=== PATIENT | male | born 1990 | race Caucasian/White ===

== ENCOUNTER 2017-02-23 22:39 | Inpatient (IN) | payer MEDICAID, OTHER ==
[~2017-02-23] VITALS: Ht 177.8 cm; Wt 57.4 kg
[~2017-02-23 22:39] MED LIST: CITA20TA9 PO
[2017-02-23] MEDS ORDERED: ALPR1TAB7 PO (22:58)
[2017-02-23 23:14] LABS: BASOPHILS # (AUTO) 0.06 K/uL (0.00-0.20); BASOPHILS % (AUTO) 0.6 % (0.0-2.0); EOSINOPHILS # (AUTO) 0.14 K/uL (0.00-0.70); EOSINOPHILS % (AUTO) 1.42 % (1.0-6.0); HEMATOCRIT 44.7 % (41-53); HEMOGLOBIN 15.3 g/dL (13.5-17.5); LYMPHOCYTES # (AUTO) 2.7 K/uL (1.0-4.8); LYMPHOCYTES % (AUTO) 26.3 % (22.0-44.0); MEAN CORPUSCULAR HGB CONC 34.2 G/dL (31.0-37.0); MEAN CORPUSCULAR VOLUME 88 fL (80-100); MONOCYTES # (AUTO) 0.5 K/uL (0.1-1.0); MONOCYTES % (AUTO) 5.3 % (2.0-9.0); NEUTROPHILS # (AUTO) 6.7 K/uL (1.8-7.7); NEUTROPHILS % (AUTO) 66.4 % (40.0-70.0); PLATELET COUNT (AUTO) 256 K/uL (150-450); RED BLOOD CELL COUNT(AUTO) 5.09 MIL/uL (4.50-5.90); RED CELL DISTRIBUTION WIDTH 13.5 % (11.5-14.5); WHITE BLOOD COUNT (AUTO) 10.1 K/uL (4.5-11.0)
[2017-02-23 23:28] LABS: ANION GAP 12 mmol/L (8-16); CALCIUM, TOTAL 8.4 mg/dL (8.8-10.5); CARBON DIOXIDE 23 mmol/L (22-29); CHLORIDE 107 mmol/L (98-107); CREATININE 0.95 mg/dL (0.60-1.30); GLOMERULAR FILTR. RATE CALC > 60 mL/min (>60); POTASSIUM 3.7 mmol/L (3.5-5.1); SODIUM SERUM 142 mmol/L (136-145); UREA NITROGEN, BLOOD 11 mg/dL (7-18)
[2017-02-23 23:34] LABS: ALANINE AMINOTRANSFERASE 18 U/L (12-78); ALBUMIN 4.4 g/dL (3.4-5.0); ASPARTATE AMINOTRANSFERASE 16 U/L (15-37); BILIRUBIN,TOTAL 0.3 mg/dL (0.1-1.0); TOTAL PROTEIN, SERUM 7.7 g/dL (6.4-8.2)
[2017-02-24] MEDS ORDERED: HALOPERIDOL 5 MG TABLET PO PRN (01:00)
[2017-02-24] MEDS ORDERED: HALOPERIDOL 5 MG TABLET PO ONE (01:00)
[2017-02-24] MEDS ORDERED: ZOLPIDEM TARTRATE 10 MG TABLET PO PRN (01:00)
[2017-02-24] MEDS ORDERED: DiphenhydrAMINE HCL 25 MG CAPSULE PO ONE (01:00)
[2017-02-24] MEDS: LORazepam 2 MG TABLET PO PRN ×2 (04:45→12:22)
[2017-02-24 04:46] VITALS: BP 114/74
[2017-02-24] MEDS ORDERED: INFLUENZA VIRUS VACCINE QVS 2017-18 (3YR+)/PF 60 MCG/0.5 ML SYRINGE IM ONE (05:30)
[2017-02-24 16:04] VITALS: BP 108/66
[2017-02-24] MEDS ORDERED: ACETAMINOPHEN 325 MG TABLET PO PRN (17:45)
[2017-02-24] MEDS: IBUPROFEN 600 MG TABLET PO PRN (18:07)
[2017-02-24] MEDS: MIRTAZAPINE 15 MG TABLET PO SCH (20:26)
[2017-02-24] MEDS ORDERED: MIRTAZAPINE 15 MG TABLET PO SCH (21:00)
[2017-02-25 01:38] VITALS: BP 110/71
[2017-02-25] MEDS: LORazepam 2 MG TABLET PO PRN ×3 (05:56→17:46)
[2017-02-25 08:26] LABS: CHOL/HDL RATIO 2.9 (4.2-7.3); THYROID STIMULATING HORMONE 1.53 uIU/mL (0.36-3.74)
[2017-02-25] MEDS: IBUPROFEN 600 MG TABLET PO PRN (08:47)
[2017-02-25 09:01] VITALS: BP 117/77
[2017-02-25 16:03] VITALS: BP 110/76
[2017-02-25] MEDS: MIRTAZAPINE 15 MG TABLET PO SCH (20:57)
[2017-02-26 05:07] VITALS: BP 105/62
[2017-02-26] MEDS: LORazepam 2 MG TABLET PO PRN (08:21)
[2017-02-26 08:46] VITALS: BP 124/89
[2017-02-26] MEDS ORDERED: MIRT15 PO (11:17)
== END 2017-02-26 13:30 | disposition home or self-care (01) | DRG 750 ==
LOC: EMS 22:40 → B2S 02-24 01:26
PROVIDERS: ADMIT Psychiatry & Neurology Psychiatry; ATTEND Psychiatry & Neurology Psychiatry
DX: F25.9 Schizoaffective disorder, unspecified (principal); F33.2 Major depressive disorder, recurrent severe without psychotic features; R45.851 Suicidal ideations; F41.9 Anxiety disorder, unspecified; F12.90 Cannabis use, unspecified, uncomplicated; F13.90 Sedative, hypnotic, or anxiolytic use, unspecified, uncomplicated; R45.84 Anhedonia; S51.812A Laceration without foreign body of left forearm, initial encounter; X58.XXXA Exposure to other specified factors, initial encounter; Y93.89 Activity, other specified; Y92.89 Other specified places as the place of occurrence of the external cause; Y99.8 Other external cause status; Z91.5 Personal history of self-harm; Z88.0 Allergy status to penicillin; Z79.899 Other long term (current) drug therapy; Z72.89 Other problems related to lifestyle
CPT/HCPCS: 84439; 84443; 90471; 99285; G0480

== ENCOUNTER 2018-02-04 11:17 | Inpatient (IN) | payer MEDICAID ==
[~2018-02-04] VITALS: Ht 177.8 cm; Wt 61.7 kg
[~2018-02-04 11:17] MED LIST changes: -CITA20TA9 PO; +MIRT15 PO
[2018-02-04 11:53] LABS: AMPHET/METH SCREEN,URINE NEGATIVE (NEGATIVE); BARBITURATE SCREEN, URINE NEGATIVE (NEGATIVE); BENZODIAZEPINES SCREEN,URINE POSITIVE (NEGATIVE); CANNABINOID SCREEN,URINE POSITIVE (NEGATIVE); COCAINE SCREEN,URINE NEGATIVE (NEGATIVE); METHADONE SCREEN, URINE NEGATIVE (NEGATIVE); OPIATE SCREEN,URINE NEGATIVE (NEGATIVE); PHENCYCLIDINE SCREEN,URINE NEGATIVE (NEGATIVE)
[2018-02-04 11:54] LABS: BASOPHILS % (AUTO) 0.9 % (0.0-2.0); HEMATOCRIT 43.1 % (41-53); HEMOGLOBIN 14.7 g/dL (13.5-17.5); LYMPHOCYTES # (AUTO) 2.5 K/uL (1.0-4.8); LYMPHOCYTES % (AUTO) 39.3 % (22.0-44.0); MEAN CORPUSCULAR HEMOGLOBIN 30.8 pg (26.0-34.0); MEAN CORPUSCULAR HGB CONC 34.1 G/dL (31.0-37.0); MEAN CORPUSCULAR VOLUME 90 fL (80-100); MONOCYTES # (AUTO) 0.4 K/uL (0.1-1.0); MONOCYTES % (AUTO) 6.6 % (2.0-9.0); NEUTROPHILS # (AUTO) 3.2 K/uL (1.8-7.7); NEUTROPHILS % (AUTO) 50.2 % (40.0-70.0); PLATELET COUNT (AUTO) 250 K/uL (150-450); RED BLOOD CELL COUNT(AUTO) 4.76 MIL/uL (4.50-5.90); RED CELL DISTRIBUTION WIDTH 13.3 % (11.5-14.5)
[2018-02-04 12:05] LABS: ANION GAP 9 mmol/L (8-16); CALCIUM, TOTAL 7.7 mg/dL (8.8-10.5); CARBON DIOXIDE 26 mmol/L (22-29); CHLORIDE 110 mmol/L (98-107); CREATININE 0.86 mg/dL (0.60-1.30); GLOMERULAR FILTR. RATE CALC > 60 mL/min (>60); GLUCOSE,RANDOM 91 mg/dL (70-110); POTASSIUM 3.8 mmol/L (3.5-5.1); SODIUM SERUM 145 mmol/L (136-145); UREA NITROGEN, BLOOD 8 mg/dL (7-18)
[2018-02-04 12:12] LABS: ALANINE AMINOTRANSFERASE 22 U/L (12-78); ALBUMIN 3.8 g/dL (3.4-5.0); ALKALINE PHOSPHATASE 75 U/L (46-116); ASPARTATE AMINOTRANSFERASE 22 U/L (15-37); BILIRUBIN,TOTAL 0.2 mg/dL (0.1-1.0); TOTAL PROTEIN, SERUM 7.3 g/dL (6.4-8.2)
[2018-02-04] MEDS: HALOPERIDOL 5 MG TABLET PO PRN (13:33)
[2018-02-04] MEDS: LORazepam 2 MG TABLET PO PRN (13:33)
[2018-02-05] VITALS (10 sets, daily range): BP systolic 101–121; BP diastolic 63–76
[2018-02-05] MEDS: ZOLPIDEM TARTRATE 10 MG TABLET PO PRN (00:23)
[2018-02-05] MEDS: LORazepam 2 MG TABLET PO PRN (00:32)
[2018-02-05] MEDS ORDERED: MAG HYDROX/AL HYDROX/SIMETH ES 30 ML SUSPENSION UDCUP PO PRN (02:15)
[2018-02-05] MEDS ORDERED: PETROLATUM,WHITE 71 GM JELLY TP PRN (02:15)
[2018-02-05] MEDS ORDERED: NICOTINE 14 MG/24 HOUR PATCH TD PRN (02:15)
[2018-02-05] MEDS ORDERED: GuaiFENesin/D-METHORPHAN [SUGAR-FREE] 200-20MG/10 ML SYRUP UDCUP PO PRN (02:15)
[2018-02-05] MEDS ORDERED: MAGNESIUM HYDROXIDE SUSPENSION 30 ML UDCUP PO PRN (02:15)
[2018-02-05] MEDS ORDERED: CloNIDine HCL 0.1 MG TABLET PO PRN (02:15)
[2018-02-05] MEDS ORDERED: DOCUSATE SODIUM 100 MG CAPSULE PO PRN (02:15)
[2018-02-05] MEDS ORDERED: IBUPROFEN 400 MG TABLET PO PRN (02:15)
[2018-02-05] MEDS ORDERED: LOPERAMIDE HCL 2 MG CAPSULE PO PRN (02:15)
[2018-02-05] MEDS ORDERED: ALBUTEROL SULFATE HFA 90 MCG/PUFF 8 GM INHALER IH PRN (02:15)
[2018-02-05] MEDS ORDERED: ONDANSETRON HCL 4 MG TABLET PO PRN (02:15)
[2018-02-05] MEDS ORDERED: ACETAMINOPHEN 325 MG TABLET PO PRN (02:15)
[2018-02-05] MEDS ORDERED: CYANOCOBALAMIN 1,000 MCG/ML VIAL IM ONE (11:15)
[2018-02-05] MEDS ORDERED: LORazepam 2 MG TABLET PO PRN (11:15)
[2018-02-05] MEDS: MULTIVITAMINS WITH MINERALS, THERAPEUTIC TABLET PO SCH (12:13)
[2018-02-05] MEDS: FOLIC ACID 1 MG TABLET PO SCH (12:13)
[2018-02-05] MEDS: LORazepam 2 MG TABLET PO SCH (14:42)
[2018-02-05] MEDS: THIAMINE HCL 100 MG TABLET PO SCH (16:09)
[2018-02-05] MEDS: HALOPERIDOL 5 MG TABLET PO PRN (16:18)
[2018-02-05] MEDS: MIRTAZAPINE 15 MG TABLET PO SCH (20:25)
[2018-02-06 06:10] VITALS: BP 113/71
[2018-02-06] MEDS ORDERED: LORazepam 2 MG TABLET PO PRN (07:00)
[2018-02-06 07:53] LABS: HEMOGLOBIN A1C 4.8 % (4.5-6.2)
[2018-02-06 08:00] VITALS: BP 121/79
[2018-02-06 08:06] VITALS: BP 121/79
[2018-02-06 08:08] LABS: ALANINE AMINOTRANSFERASE 25 U/L (12-78); ALBUMIN 3.8 g/dL (3.4-5.0); ALKALINE PHOSPHATASE 75 U/L (46-116); ANION GAP 8 mmol/L (8-16); ASPARTATE AMINOTRANSFERASE 29 U/L (15-37); BILIRUBIN,TOTAL 0.7 mg/dL (0.1-1.0); CALCIUM, TOTAL 8.9 mg/dL (8.8-10.5); CARBON DIOXIDE 30 mmol/L (22-29); CHLORIDE 102 mmol/L (98-107); CHOL/HDL RATIO 3.2 (4.2-7.3); CHOLESTEROL 189 mg/dL (131-200); CREATININE 0.93 mg/dL (0.60-1.30); GLOMERULAR FILTR. RATE CALC > 60 mL/min (>60); GLUCOSE,RANDOM 67 mg/dL (70-110); HDL CHOLESTEROL 60 mg/dL (40-60); LDL CHOL (CALC.) 100 mg/dL (0-130); POTASSIUM 4.4 mmol/L (3.5-5.1); SODIUM SERUM 140 mmol/L (136-145); THYROID STIMULATING HORMONE 1.63 uIU/mL (0.36-3.74); TOTAL PROTEIN, SERUM 7.4 g/dL (6.4-8.2); TRIGLYCERIDES 145 mg/dL (15-150); UREA NITROGEN, BLOOD 9 mg/dL (7-18)
[2018-02-06] MEDS: LORazepam 2 MG TABLET PO SCH ×4 (08:31→20:35)
[2018-02-06] MEDS: FOLIC ACID 1 MG TABLET PO SCH (08:31)
[2018-02-06] MEDS: THIAMINE HCL 100 MG TABLET PO SCH ×2 (08:31→16:04)
[2018-02-06] MEDS: MULTIVITAMINS WITH MINERALS, THERAPEUTIC TABLET PO SCH (08:31)
[2018-02-06] MEDS: HALOPERIDOL 5 MG TABLET PO PRN (11:15)
[2018-02-06 16:05] VITALS: BP 115/75
[2018-02-06 16:06] VITALS: BP 115/75
[2018-02-06] MEDS: MIRTAZAPINE 15 MG TABLET PO SCH (20:35)
[2018-02-06] MEDS: ZOLPIDEM TARTRATE 10 MG TABLET PO PRN (23:40)
[2018-02-07 01:06] VITALS: BP 107/63
[2018-02-07 08:10] VITALS: BP 122/79
[2018-02-07] MEDS: LORazepam 2 MG TABLET PO SCH ×2 (08:30→13:42)
[2018-02-07] MEDS: FOLIC ACID 1 MG TABLET PO SCH (08:30)
[2018-02-07] MEDS: MULTIVITAMINS WITH MINERALS, THERAPEUTIC TABLET PO SCH (08:30)
[2018-02-07] MEDS: THIAMINE HCL 100 MG TABLET PO SCH (08:30)
[2018-02-07] MEDS ORDERED: FOLI1 PO (08:52)
[2018-02-07] MEDS ORDERED: THIA100T67 PO (08:52)
[2018-02-07] MEDS ORDERED: MIRT15 PO (14:34)
[2018-02-08] MEDS ORDERED: LORazepam 1 MG TABLET PO PRN (07:00)
[2018-02-08] MEDS ORDERED: LORazepam 1 MG TABLET PO SCH (09:00)
[2018-02-09] MEDS ORDERED: LORazepam 1 MG TABLET PO PRN (07:00)
== END 2018-02-07 15:22 | disposition home or self-care (01) | DRG 751 ==
LOC: EMS 11:17 → B2S 21:08
DX: F33.3 Major depressive disorder, recurrent, severe with psychotic symptoms (principal); R45.851 Suicidal ideations; F10.20 Alcohol dependence, uncomplicated; F12.10 Cannabis abuse, uncomplicated; F19.10 Other psychoactive substance abuse, uncomplicated; G47.00 Insomnia, unspecified; F41.9 Anxiety disorder, unspecified; Z91.5 Personal history of self-harm; Z88.0 Allergy status to penicillin; Z88.2 Allergy status to sulfonamides; Z88.8 Allergy status to other drugs, medicaments and biological substances; Z28.21 Immunization not carried out because of patient refusal; Z71.41 Alcohol abuse counseling and surveillance of alcoholic; Z71.51 Drug abuse counseling and surveillance of drug abuser
CPT/HCPCS: 83036; 84439; 84443; 99285; G0480; J3420

== ENCOUNTER 2018-10-29 19:32 | Emergency (ER) | payer SELFPAY ==
[~2018-10-29] VITALS: Ht 177.8 cm; Wt 61.4 kg
[2018-10-29] MEDS ORDERED: PARO20TA24 PO (19:45)
[2018-10-29 21:48] VITALS: BP 122/77
== END 2018-10-29 21:57 | disposition home or self-care (01) ==
LOC: EMS 19:34
DX: S40.862A Insect bite (nonvenomous) of left upper arm, initial encounter (principal); S30.861A Insect bite (nonvenomous) of abdominal wall, initial encounter; L50.9 Urticaria, unspecified; F41.9 Anxiety disorder, unspecified; F32.9 Major depressive disorder, single episode, unspecified; F17.210 Nicotine dependence, cigarettes, uncomplicated; Z88.0 Allergy status to penicillin; Z88.8 Allergy status to other drugs, medicaments and biological substances; W57.XXXA Bitten or stung by nonvenomous insect and other nonvenomous arthropods, initial encounter; Y93.89 Activity, other specified; Y92.89 Other specified places as the place of occurrence of the external cause; Y99.8 Other external cause status

== ENCOUNTER 2019-12-26 10:20 | Emergency (ER) | payer OTHER ==
[~2019-12-26] VITALS: Ht 177.8 cm; Wt 70.5 kg
[~2019-12-26 10:20] MED LIST changes: -MIRT15 PO; +PARO20TA24 PO
[2019-12-26] MEDS ORDERED: ONDANSETRON HCL 4 MG/2 ML VIAL IVP ONE (11:00)
[2019-12-26 12:17] LABS: BASOPHILS % (AUTO) 0.6 % (0.0-2.0); EOSINOPHILS % (AUTO) 0.6 % (1.0-6.0); HEMOGLOBIN 14.7 g/dL (13.5-17.5); LYMPHOCYTES # (AUTO) 0.7 K/uL (1.0-4.8); LYMPHOCYTES % (AUTO) 5.6 % (22.0-44.0); MEAN CORPUSCULAR HEMOGLOBIN 29.5 pg (26.0-34.0); MEAN CORPUSCULAR HGB CONC 33.4 G/dL (31.0-37.0); MEAN CORPUSCULAR VOLUME 88 fL (80-100); MONOCYTES # (AUTO) 0.8 K/uL (0.1-1.0); MONOCYTES % (AUTO) 6.7 % (2.0-9.0); NEUTROPHILS # (AUTO) 10.9 K/uL (1.8-7.7); PLATELET COUNT (AUTO) 297 K/uL (150-450); RED BLOOD CELL COUNT(AUTO) 4.99 MIL/uL (4.50-5.90); RED CELL DISTRIBUTION WIDTH 14.2 % (11.5-14.5)
[2019-12-26 12:23] LABS: ANION GAP 9 mmol/L (8-16); CALCIUM, TOTAL 8.9 mg/dL (8.8-10.5); CARBON DIOXIDE 28 mmol/L (22-29); CHLORIDE 99 mmol/L (98-107); CREATININE 1.07 mg/dL (0.60-1.30); GLOMERULAR FILTR. RATE CALC > 60 mL/min (>60); GLUCOSE,RANDOM 101 mg/dL (70-110); NEUTROPHILS % (AUTO) 86.5 % (40.0-70.0); POTASSIUM 3.5 mmol/L (3.5-5.1); SODIUM SERUM 136 mmol/L (136-145); UREA NITROGEN, BLOOD 8 mg/dL (7-18)
[2019-12-26 12:29] LABS: ALANINE AMINOTRANSFERASE 22 U/L (12-78); ALBUMIN 3.9 g/dL (3.4-5.0); ALKALINE PHOSPHATASE 68 U/L (46-116); ASPARTATE AMINOTRANSFERASE 15 U/L (15-37); BILIRUBIN,TOTAL 0.6 mg/dL (0.1-1.0); TOTAL PROTEIN, SERUM 7.6 g/dL (6.4-8.2)
[2019-12-26] MEDS ORDERED: SUMAtriptan SUCCINATE 6 MG/0.5 ML VIAL SQ ONE (12:30)
[2019-12-26] MEDS ORDERED: KETOROLAC TROMETHAMINE 30 MG/ML VIAL IVP ONE (12:30)
[2019-12-26 12:36] LABS: INFLUENZA TYPE A NEGATIVE FOR TYPE A (NEGATIVE); INFLUENZA TYPE B NEGATIVE FOR TYPE B (NEGATIVE)
[2019-12-26 12:50] LABS: APPEARANCE,URINE CLEAR (CLEAR); BILIRUBIN,URINE NEGATIVE (NEGATIVE); GLUCOSE, URINE (UA) NEGATIVE (NEGATIVE); KETONES,URINE NEGATIVE (NEGATIVE); LEUKOCYTE ESTERASE ,URINE NEGATIVE (NEGATIVE); NITRATE,URINE NEGATIVE (NEGATIVE); OCCULT BLOOD,URINE NEGATIVE (NEGATIVE); PH,URINE 6.5 (5.0-8.0); PROTEIN,URINE NEGATIVE (NEGATIVE); UROBILINOGEN,URINE 0.2 mg/dL (<=1.0)
[2019-12-26 12:59] LABS: AMPHET/METH SCREEN,URINE NEGATIVE (NEGATIVE); BARBITURATE SCREEN, URINE NEGATIVE (NEGATIVE); BENZODIAZEPINES SCREEN,URINE NEGATIVE (NEGATIVE); CANNABINOID SCREEN,URINE NEGATIVE (NEGATIVE); COCAINE SCREEN,URINE NEGATIVE (NEGATIVE); METHADONE SCREEN, URINE NEGATIVE (NEGATIVE); OPIATE SCREEN,URINE NEGATIVE (NEGATIVE)
[2019-12-26 13:03] LABS: PHENCYCLIDINE SCREEN,URINE NEGATIVE (NEGATIVE)
[2019-12-26] MEDS ORDERED: ACETAMINOPHEN 500 MG TABLET PO ONE (13:30)
[2019-12-26 15:48] VITALS: BP 122/72
== END 2019-12-26 16:00 | disposition home or self-care (01) ==
LOC: EMS 10:23
DX: G44.009 Cluster headache syndrome, unspecified, not intractable (principal); B34.9 Viral infection, unspecified; F41.9 Anxiety disorder, unspecified; F32.9 Major depressive disorder, single episode, unspecified; F17.210 Nicotine dependence, cigarettes, uncomplicated; Z20.828 Contact with and (suspected) exposure to other viral communicable diseases; Z88.0 Allergy status to penicillin; Z88.1 Allergy status to other antibiotic agents; Z79.899 Other long term (current) drug therapy
CPT/HCPCS: 36415; 70450; 71045; 80053; 80307; 81003; 85025; 87804; 96372; 96374; 96375; 99285; J1885; J2405; J3030; U0003

== ENCOUNTER 2020-02-25 12:58 | Emergency (ER) | payer OTHER ==
[~2020-02-25] VITALS: Ht 175.3 cm; Wt 54.5 kg
[2020-02-25] MEDS ORDERED: SODIUM CHLORIDE 0.9% 1,000 ML IV ONE (14:15)
[2020-02-25 14:24] LABS: BASOPHILS % (AUTO) 0.8 % (0.0-2.0); EOSINOPHILS % (AUTO) 1.4 % (1.0-6.0); HEMATOCRIT 46.7 % (41-53); LYMPHOCYTES # (AUTO) 4.2 K/uL (1.0-4.8); LYMPHOCYTES % (AUTO) 35.8 % (22.0-44.0); MEAN CORPUSCULAR HEMOGLOBIN 29.9 pg (26.0-34.0); MEAN CORPUSCULAR HGB CONC 34.3 G/dL (31.0-37.0); MEAN CORPUSCULAR VOLUME 87 fL (80-100); MONOCYTES # (AUTO) 0.6 K/uL (0.1-1.0); MONOCYTES % (AUTO) 5.5 % (2.0-9.0); NEUTROPHILS # (AUTO) 6.6 K/uL (1.8-7.7); NEUTROPHILS % (AUTO) 56.5 % (40.0-70.0); PLATELET COUNT (AUTO) 325 K/uL (150-450); RED BLOOD CELL COUNT(AUTO) 5.35 MIL/uL (4.50-5.90); RED CELL DISTRIBUTION WIDTH 13.6 % (11.5-14.5)
[2020-02-25 14:36] LABS: ANION GAP 9 mmol/L (8-16); CALCIUM, TOTAL 8.1 mg/dL (8.8-10.5); CARBON DIOXIDE 26 mmol/L (22-29); CHLORIDE 108 mmol/L (98-107); CREATININE 0.83 mg/dL (0.60-1.30); GLOMERULAR FILTR. RATE CALC > 60 mL/min (>60); GLUCOSE,RANDOM 78 mg/dL (70-110); SODIUM SERUM 143 mmol/L (136-145); UREA NITROGEN, BLOOD 5 mg/dL (7-18)
[2020-02-25 14:41] LABS: ALANINE AMINOTRANSFERASE 28 U/L (12-78); ALBUMIN 3.9 g/dL (3.4-5.0); ALKALINE PHOSPHATASE 86 U/L (46-116); ASPARTATE AMINOTRANSFERASE 25 U/L (15-37); BILIRUBIN,TOTAL 0.3 mg/dL (0.1-1.0); TOTAL PROTEIN, SERUM 7.1 g/dL (6.4-8.2)
[2020-02-25 14:53] LABS: GLUCOSE,POINT OF CARE 68 MG/DL (70-110)
[2020-02-25] MEDS ORDERED: POTASSIUM CHLORIDE 20 MEQ ER TABLET PO ONE (15:45)
[2020-02-25] MEDS ORDERED: MAGNESIUM SULFATE 2 GM, MVI, ADULT NO.1 WITH VIT K 10 ML, THIAMINE 100 MG, FOLIC ACID 1... IV ONE ×5 (15:45)
[2020-02-25] MEDS ORDERED: KETOROLAC TROMETHAMINE 30 MG/ML VIAL IVP ONE (16:15)
[2020-02-25 20:30] VITALS: BP 135/88
== END 2020-02-25 21:05 | disposition home or self-care (01) ==
LOC: EMS 13:00
DX: F10.129 Alcohol abuse with intoxication, unspecified (principal); F17.210 Nicotine dependence, cigarettes, uncomplicated; E11.9 Type 2 diabetes mellitus without complications; F32.9 Major depressive disorder, single episode, unspecified; Z88.0 Allergy status to penicillin; Z88.2 Allergy status to sulfonamides; Y90.8 Blood alcohol level of 240 mg/100 ml or more
CPT/HCPCS: 36415; 80053; 82962; 85025; 96361; 96365; 96366; 96375; 99285; G0480; J1885; J3411; J3475; J3490 ×2; J7030